=== PATIENT | female | born 1960 | race Caucasian/White ===

== ENCOUNTER 2024-11-25 14:36 | Outpatient (CLI) | payer OTHER, SELFPAY ==
--- NOTE | 2024-11-25 14:40 | MM_ITS ---
WS: [id number] BILATERAL 3D TOMOSYNTHESIS DIGITAL SCREENING MAMMOGRAPHY WITH CAD CLINICAL INFORMATION: Z12.39 - Encounter for other screening for malignant neop... HISTORY: Screening mammogram. No current complaints. COMPARISON: New baseline TECHNIQUE: Bilateral CC and MLO views. FINDINGS: Scattered fibroglandular densities bilaterally. No suspicious focal mass, asymmetry, calcifications, or architectural distortion. No evidence of malignancy. MM/MM scr BI tomosynthesis [id number] IMPRESSION: DENSITY: There are scattered areas of fibroglandular density. BI-RADS: 1 - Negative. FOLLOW UP: 1 Year Follow-up Recommend return to annual screening mammography.
== END 2024-11-25 14:37 | disposition home or self-care (01) ==
PROVIDERS: Family Provider Nurse Practitioner Family; PCP Nurse Practitioner Family; Visit Provider Nurse Practitioner Family
DX: Z12.31 Encounter for screening mammogram for malignant neoplasm of breast (principal); R92.323 Mammographic fibroglandular density, bilateral breasts
CPT/HCPCS: 77063; 77067

== ENCOUNTER → 2024-12-15 14:10 | Outpatient (BNVA) | payer OTHER, SELFPAY | PROVIDERS: Family Provider Nurse Practitioner Family; PCP Nurse Practitioner Family; Visit Provider Nurse Practitioner Family | DX: Z12.4 Encounter for screening for malignant neoplasm of cervix (principal) | CPT/HCPCS: 87624 ==

== ENCOUNTER 2025-03-23 10:19 | Day surgery (SDC) | payer OTHER, SELFPAY ==
[2025-03-23 10:33] VITALS: BP 144/85; PULSE 75; RESP 16; TEMP 36.4; O2SAT 97; BMI 30.9
--- NOTE | 2025-03-23 10:53 | ANES.PREANE2 ---
Pre-Anesthetic Assessment Height/Weight: Height 1.63 m Weight 81.647 kg Temp Pulse Resp BP Pulse Ox O2 Del Method 97.5 F L 75 16 144/85 97 Room Air 03/23/25 10:33 03/23/25 10:33 03/23/25 10:33 03/23/25 10:33 03/23/25 10:33 03/23/25 10:33 Operation Date: 03/23/25 11:30 Proposed Procedures p Colonoscopy 39088 G0105, R19.5(Not Applicable) - Warren Mullins MD Was Beta Vishnu taken within 24 hours: N/A Was Clonidine taken within 24 hours: N/A Last intake: Intake Last Liquid Date 03/22/25 Last Liquid Time 20:00 Last Solid Date 03/21/25 Last Solid Time 23:00 Social Alcohol and No tobacco Exam alert, oriented x 3, clear to auscultation bilaterally and regular rate & rhythm Airway Submandibular: within normal limits Cervical ROM: within normal limits Mallampati: Class III Dentition: partials Pulmonary None reported CV/HEM Hypertension None reported Hepatic None reported GI None reported Metabolic None reported Musc/skel None reported Neuropsych None reported Anesthetic Plan ASA status: 2 Anesthesia: Anesthesia Evaluation, General and MAC Risk of > 500 ml blood loss (7ml/kg in children): No Medications/Allergies Home Medications ?Medication ?Instructions ?Recorded ?Confirmed ?Last Taken ?Type No Known Home Medications 11/02/24 03/17/25 Unknown History Allergies Allergy/AdvReac Type Severity Reaction Status Date / Time martha [place] Allergy Mild ALGY-Hives Uncoded 02/08/25 09:59 [facility] Anesthesia Medical History (Updated 02/08/25 @ 10:42 by Warren Mullins MD) No pertinent past medical history Surgical History H/O removal of cyst ganglion cyst 30 years ago Social History Smoking and tobacco/nicotine status: never used tobacco/nicotine Second hand smoke exposure: Yes Alcohol intake: current Alcohol intake frequency: holidays/special occasions only Substance/Drug Use: never Adopted: No Caregiver/support person: No Lives independently: No Household members: children Housing: House Marital status: / Number of children: 1 Number of grandchildren: 1 Highest education level completed: GED or Equivalent service: No Current occupational status: employed Current occupation: [employer] Pets and animals: Yes Leisure activites: exercise Do you think of yourself as: Straight/Heterosexual Female Reproductive History Para: 1
--- NOTE | 2025-03-23 11:16 | W.PM.OPSFHP ---
Same Day Surgery H&P Indication for Procedure/HPI DATE OF PROCEDURE: March 23, 2025 CHIEF COMPLAINT/INDICATIONFOR SURGICAL PROCEDURE: positive hemoccult PREOP DIAGNOSIS: positive hemoccult PLANNED PROCEDURE: Operation Date: 03/23/25 11:30 Proposed Procedures p Colonoscopy [id number] G0105, R19.5(Not Applicable) - Warren Mullins MD Medications/Allergies* Home Medications ?Medication ?Instructions ?Recorded ?Confirmed ?Type No Known Home Medications 11/02/24 03/17/25 History Allergies/Adverse Reactions Allergy/AdvReac Type Severity Reaction Status Date / Time [place]tha [place] Allergy Mild ALGY-Hives Uncoded 02/08/25 09:59 Pertinent History/Comorbid Conditions* Medical History (Updated 02/08/25 @ 10:42 by Warren Mullins MD) No pertinent past medical history Surgical History (Updated 11/02/24 @ 09:28 by JASON Cox) H/O removal of cyst ganglion cyst 30 years ago Social History Smoking and tobacco/nicotine status: never used tobacco/nicotine Second hand smoke exposure: Yes Alcohol intake: current Alcohol intake frequency: holidays/special occasions only Substance/Drug Use: never Adopted: No Caregiver/support person: No Lives independently: No Household members: children Housing: House Marital status: / Number of children: 1 Number of grandchildren: 1 Highest education level completed: GED or Equivalent service: No Current occupational status: employed Current occupation: [email or web address] Pets and animals: Yes Leisure activites: exercise Do you think of yourself as: Straight/Heterosexual Pertinent Exam Findings alert, oriented x 3, clear to auscultation bilaterally, regular rate & rhythm and procedure specific exam findings abdomen soft, nt, nd Recommendations Risks and benefits of procedure reviewed and Patient/family agree to proceed Surgery/Procedure today Coding Level of Care Code Acute Code for Chg Fwd
[2025-03-23 11:36] VITALS: BP 110/69; PULSE 78; RESP 18; TEMP 36.2; O2SAT 94
[2025-03-23 11:46] VITALS: BP 102/69; PULSE 82; RESP 18; TEMP 36.2; O2SAT 94
== END 2025-03-23 12:34 | disposition home or self-care (01) ==
PROVIDERS: PCP Nurse Practitioner Family; Visit Provider Student in an Organized Health Care Education/Training Program
PROC: 0DJD8ZZ Inspection of Lower Intestinal Tract, Via Natural or Artificial Opening Endoscopic (ICD-10-PCS; CPT 45378; principal; 2025-03-23 11:30)
DX: Z12.11 Encounter for screening for malignant neoplasm of colon (principal); D12.8 Benign neoplasm of rectum; K63.5 Polyp of colon; R19.5 Other fecal abnormalities; K57.30 Diverticulosis of large intestine without perforation or abscess without bleeding; K52.9 Noninfective gastroenteritis and colitis, unspecified; I10 Essential (primary) hypertension
CPT/HCPCS: 45380; 45385; 88305; J2704; J7030